=== PATIENT | female | born 2000 | race Caucasian/White ===

== ENCOUNTER 2022-07-15 21:16 | Emergency (ER) | payer OTHER ==
[~2022-07-15] VITALS: Ht 175.3 cm; Wt 68.2 kg
[2022-07-15 21:24] VITALS: TEMP 97.5
[2022-07-16 01:07] VITALS: BP 101/65; PULSE 85
== END 2022-07-16 01:07 | disposition home or self-care (01) ==
LOC: COL.ER 21:16
DX: F10.229 Alcohol dependence with intoxication, unspecified (principal)
CPT/HCPCS: J2405; J2550; J7120